=== PATIENT | female | born 1940 | race Caucasian/White ===

== ENCOUNTER 2016-10-04 06:49 | Emergency (ER) | payer MEDICARE, OTHER ==
[2016-10-04 05:32] LABS: ASCORBIC ACID (UR NOT ORDER) NEG (NEG); BILIRUBIN, URINE NEGATIVE (NEG); ER URINALYSIS TAT 0 Hrs 00 Mins; KETONE, URINE NEGATIVE (NEG); LEUKOCYTE ESTERASE(NOT OR NEG (NEG); NITRITE (URINE) NEG (NEG); WBC (NOT ORDERED) (RFLEX) 2 (0-5)
[2016-10-04 05:55] LABS: BASOPHILS 0.7 %; BASOPHILS ABSOLUTE 0.04 10/3/uL (0.0-0.16); EOSINOPHILS 3.7 %; EOSINOPHILS ABSOLUTE 0.21 10/3/uL (0.0-0.53); HEMATOCRIT 35.3 % (36.0-48.0); HEMOGLOBIN 11.9 g/dL (12.0-16.0); IMMATURE GRANULOCYTES 0.2 %; IMMATURE GRANULOCYTES ABSOLUTE 0.01 10/3/uL (0.0-0.11); LYMPHOCYTES 26.8 %; LYMPHOCYTES ABSOLUTE 1.54 10/3/uL (0.67-4.30); MEAN CORPUS HGB CONC 33.7 g/dL (32.0-36.0); MEAN CORPUSCULAR HEMOGLOB 29.8 pg (26.0-34.0); MEAN CORPUSCULAR VOLUME 88.5 fL (80-100); MEAN PLATELET VOLUME 10.6 fL (9.2-13.0); MONOCYTES 8.4 %; MONOCYTES ABSOLUTE 0.48 10/3/uL (0.21-1.20); NEUTROPHILS 60.2 %; NEUTROPHILS ABSOLUTE 3.46 10/3/uL (2.02-8.40); PLATELET COUNT 215 10/3/uL (150-400); RBC DISTRIBUTION WIDTH 13.6 % (12.0-16.0); RED CELL COUNT 3.99 10/6/uL (4.0-5.6); WHITE BLOOD CELLS 5.7 10/3/uL (4.5-10.5)
[2016-10-04 05:56] LABS: MANUAL DIFF NO %
[2016-10-04 06:02] LABS: PARTIAL THROMBO TIME 33.6 SEC (22.5-37.2); PROTIME (NOT ORD) 13.3 SEC (12.0-14.5)
[2016-10-04 06:15] LABS: BUN (BLOOD UREA NITROGEN) 14 MG/DL (6-23); CALCIUM, SERUM 9.2 MG/DL (8.5-10.4); CHEST PAIN PROFILE TAT 0 Hrs 24 Mins; CHLORIDE, SERUM 108 MMOL/L (96-112); CO2 (CARBON DIOXIDE) 26 MMOL/L (24-34); CREATININE 0.64 MG/DL (0.55-1.02); GFR AFRICAN AMERICAN 100 ML/MIN (>=60); GFR NON AFRICAN AMERICAN 87 ML/MIN (>=60); GLUCOSE, SERUM 104 MG/DL (60-99); POTASSIUM, SERUM 4.1 MMOL/L (3.5-5.3); SODIUM, SERUM 143 MMOL/L (135-148); TROPONIN I <0.02 NG/ML (<0.05)
== END 2016-10-04 06:59 | disposition home or self-care (01) ==
LOC: ER 06:49
PROVIDERS: Nurse Practitioner
DX: I10 Essential (primary) hypertension (principal); Z90.710 Acquired absence of both cervix and uterus; Z88.5 Allergy status to narcotic agent; Z88.8 Allergy status to other drugs, medicaments and biological substances
CPT/HCPCS: 71010; 80048; 81001; 83735; 84484; 85025; 85610; 85730; 93005; 99284